=== PATIENT | female | born 1955 | race Caucasian/White ===

== ENCOUNTER 2016-05-21 08:45 | Outpatient (CLI) | END 2016-05-21 08:46 | disposition home or self-care (01) ==

== ENCOUNTER 2016-07-09 14:29 | Outpatient (CLI) | payer MEDICAID | END 2016-07-09 14:30 | disposition home or self-care (01) | DX: Z11.59 Encounter for screening for other viral diseases (principal) ==

== ENCOUNTER 2017-03-04 13:14 | Outpatient (CLI) | payer MEDICAID | END 2017-03-04 13:15 | disposition home or self-care (01) | LOC: LAB 13:14 | PROVIDERS: ATTEND Internal Medicine | DX: K21.0 Gastro-esophageal reflux disease with esophagitis (principal) | CPT/HCPCS: 36415; 83735 ==

== ENCOUNTER 2018-01-15 15:29 | Emergency (ER) | payer MEDICAID ==
[2018-01-15 15:36] VITALS: BP 167/81
--- NOTE | 2018-01-15 15:55 | ED Physician Documentation ---
History of Present Illness - Stated complaint Stated Complaint: NECK PX - Chief complaint Chief Complaint: General - History obtained from History obtained from: Patient - History of Present Illness Timing: Other (2 weeks ago she developed atraumatic neck pain on the left. It got better after a little bit, but worse again over the last few days and was "11 out of 10 earlier today. There was no specific factor that made it worse. She saw her chiropractor who did an x-ray and said she had arthritis. She did take a Vicodin today which helped a lot, but does not have anymore. There is no weakness, numbness, or tingling in the extremities or saddle area. No fevers.) Review of Systems Constitutional: denies: Fever, Chills GI: denies: Abdominal Pain, Nausea PD PAST MEDICAL HISTORY - Past Medical History Cardiovascular: Hypertension Respiratory: None Endocrine/Autoimmune: None GI: GERD : None Psych: None Musculoskeletal: None Derm: Rosacea - Past Surgical History General: Cholecystectomy, Colonoscopy /FINANCIAL REPORTING SPECIALIST: Hysterectomy HEENT: Tonsil/Adenoidectomy - Present Medications Home Medications: Ambulatory Orders Medication Instructions Recorded Confirmed Atenolol 50 mg PO DAILY 03/19/15 03/20/15 Diphenhydramine HCl [Benadryl] 25 mg PO QPM 03/19/15 03/20/15 Gabapentin 400 mg PO QPM 03/19/15 03/20/15 Melatonin 6 mg PO QPM 03/19/15 03/20/15 Pantoprazole [Protonix] 40 mg PO DAILY 03/19/15 03/20/15 HYDROcod/ACETAM 5/325 [[place] 5/325] 1 ea PO Q6H PRN #15 tablet 11/05/15 Ibuprofen [Motrin] 400 mg PO Q6H PRN #30 tablet 11/05/15 Hydrocodone/Acetaminophen 1 - 2 each PO Q6H PRN #14 tablet 01/15/18 [Hydrocodon-Acetaminophen 5-325] - Allergies Allergies/Adverse Reactions: Allergies Allergy/AdvReac Type Severity Reaction Status Date / Time erythromycin lactobionate * Allergy Rash Verified 11/05/15 13:27 [From Erythrocin] levofloxacin [From Levaquin] Allergy Rash Verified 11/05/15 13:27 nitrofurantoin Allergy Rash Verified 11/05/15 13:27 [From Macrobid] nitrofurantoin Allergy Rash Verified 11/05/15 13:27 macrocrystalline * [From Macrobid] doxycycline AdvReac the runs Verified 11/05/15 13:27 tetracycline AdvReac runs Verified 11/05/15 13:27 - Social History Does the pt smoke?: No Smoking Status: Never smoker Does the pt drink ETOH?: No Does the pt have substance abuse?: No - Immunizations Immunizations are current?: Yes PD ED PE NORMAL - Vitals Vital signs reviewed: Yes - General General: Alert and oriented X 3, No acute distress - HEENT HEENT: PERRL, EOMI - Neck Neck: No bony TTP, Other (Mild tenderness over the left sternocleidomastoid) - Extremities Extremities: Other (Equal bilateral senior sales operations manager strength, thumb extension, interosseous strength, flexion and extension at both wrists, upper extremity reflexes and sensation throughout the upper extremities.) - Neuro Neuro: Alert and oriented X 3, Normal speech Results - Vitals Vitals: Vital Signs - 24 hr 01/15/18 15:32 Temperature 36.6 C Heart Rate 64 Respiratory 16 Rate Blood Pressure 167/81 H O2 Saturation 99 Oxygen O2 Source Room air PD MEDICAL DECISION MAKING - Sepsis Event Vital Signs: Vital Signs - 24 hr 01/15/18 15:32 Temperature 36.6 C Heart Rate 64 Respiratory 16 Rate Blood Pressure 167/81 H O2 Saturation 99 Oxygen O2 Source Room air Departure - Departure Disposition: 01 Home, Self Care Clinical Impression: Neck pain Condition: Good Record reviewed to determine appropriate education?: Yes Instructions: ED Neck Pain No Trauma Prescriptions: Hydrocodone/Acetaminophen [Hydrocodon-Acetaminophen 5-325] 1 - 2 each PO Q6H PRN #14 tablet PRN Reason: pain Comments: Call your doctor to arrange a follow-up appointment, make the next available appointment. In the interim, return anytime if worse or if new symptoms develop. Your blood pressure was elevated today on check into the emergency department. This does not mean that you have hypertension, it is a common phenomenon to come to the emergency department and have elevated blood pressure. I recommend that you see your primary care physician within the week to have it rechecked when you are feeling better.
== END 2018-01-15 15:59 | disposition home or self-care (01) ==
LOC: ED 15:29
DX: M54.2 Cervicalgia (principal); I10 Essential (primary) hypertension
CPT/HCPCS: 99281; 99283

== ENCOUNTER 2018-08-24 08:19 | Outpatient (CLI) | payer MEDICAID ==
[2018-08-24 08:50] LABS: CHOL/HDL RATIO 3.4 (<4.4); CHOLESTEROL 155 mg/dL; HDL CHOLESTEROL 46 mg/dL; LDL CHOLESTEROL,CALCULATED 90 mg/dL; VLDL CHOLESTEROL 19 mg/dL
== END 2018-08-24 08:20 | disposition home or self-care (01) ==
LOC: LAB 08:19
PROVIDERS: ATTEND Internal Medicine
DX: E78.5 Hyperlipidemia, unspecified (principal)
CPT/HCPCS: 36415; 80061; 83721

== ENCOUNTER 2019-03-01 08:14 | Outpatient (CLI) | payer MEDICAID ==
[2019-03-01 09:02] LABS: ALBUMIN 4.4 g/dL (3.2-5.5); ALBUMIN/GLOBULIN RATIO 1.3 (1.0-2.2); ALKALINE PHOSPHATASE 70 IU/L (42-121); ALT ALANINE AMINOTRANSFERASE 43 IU/L (10-60); AST ASPARTATE AMINOTRANSFERASE 34 IU/L (10-42); BILIRUBIN,TOTAL 0.8 mg/dL (0.2-1.0); BUN - BLOOD UREA NITROGEN 24 mg/dL (6-20); CALCIUM 9.2 mg/dL (8.5-10.3); CARBON DIOXIDE - CO2 24 mmol/L (21-32); CHLORIDE 106 mmol/L (101-111); CHOL/HDL RATIO 3.2 (<4.4); CHOLESTEROL 144 mg/dL; CREATININE 0.9 mg/dL (0.4-1.0); GFR - MDRD 63 (>89); GLUCOSE 102 mg/dL (70-100); HDL CHOLESTEROL 45 mg/dL; LDL CHOLESTEROL,CALCULATED 79 mg/dL; LDL/HDL RATIO 1.8 (<4.4); SODIUM 139 mmol/L (135-145); TOTAL PROTEIN 7.8 g/dL (6.7-8.2); VLDL CHOLESTEROL 20 mg/dL
== END 2019-03-01 08:15 | disposition home or self-care (01) ==
LOC: LAB 08:14
PROVIDERS: ATTEND Internal Medicine
DX: E78.5 Hyperlipidemia, unspecified (principal)
CPT/HCPCS: 36415; 80053; 80061; 83721

== ENCOUNTER 2019-11-13 08:21 | Outpatient (CLI) | payer MEDICAID ==
[2019-11-13 09:13] LABS: ALBUMIN 4.4 g/dL (3.2-5.5); ALBUMIN/GLOBULIN RATIO 1.4 (1.0-2.2); BILIRUBIN,TOTAL 0.7 mg/dL (0.2-1.0); CALCIUM 9.1 mg/dL (8.5-10.3); CREATININE 0.9 mg/dL (0.4-1.0); TOTAL PROTEIN 7.5 g/dL (6.7-8.2)
== END 2019-11-13 08:22 | disposition home or self-care (01) ==
LOC: LAB 08:21
PROVIDERS: ATTEND Internal Medicine
DX: E78.5 Hyperlipidemia, unspecified (principal)
CPT/HCPCS: 36415; 80053

== ENCOUNTER 2020-05-13 08:45 | Outpatient (CLI) | payer MEDICAID ==
[2020-05-13 09:16] LABS: BASOPHILS % (AUTO) 0.4 %; EOSINOPHILS # (AUTO) 0.2 10^3/uL (0.0-0.7); EOSINOPHILS % (AUTO) 2.5 %; HGB - HEMOGLOBIN 14.3 g/dL (12.0-16.0); LYMPHOCYTES # (AUTO) 2.3 10^3/uL (1.5-3.5); MEAN CORPUSCULAR HEMOGLOBIN 30.1 pg (27.0-31.0); MEAN CORPUSCULAR HGB CONC 33.3 g/dL (32.0-36.0); MEAN CORPUSCULAR VOLUME 90.5 fL (81.0-99.0); MEAN PLATELET VOLUME 9.4 fL (7.9-10.8); MONOCYTES # (AUTO) 0.7 10^3/uL (0.0-1.0); MONOCYTES % (AUTO) 7.9 %; NEUTROPHILS % (AUTO) 63.8 %; PLT - PLATELET COUNT 219 10^3/uL (130-450); RED BLOOD COUNT 4.75 10^6/uL (4.20-5.40); RED CELL DISTRIBUTION WIDTH 13.4 % (12.0-15.0); WHITE BLOOD COUNT 9.4 x10^3/uL (4.8-10.8)
[2020-05-13 09:38] LABS: ALBUMIN 4.1 g/dL (3.2-5.5); ALBUMIN/GLOBULIN RATIO 1.3 (1.0-2.2); ALKALINE PHOSPHATASE 72 IU/L (42-121); ALT ALANINE AMINOTRANSFERASE 33 IU/L (10-60); AST ASPARTATE AMINOTRANSFERASE 28 IU/L (10-42); BILIRUBIN,TOTAL 0.5 mg/dL (0.2-1.0); BUN - BLOOD UREA NITROGEN 20 mg/dL (6-20); CALCIUM 9.3 mg/dL (8.5-10.3); CARBON DIOXIDE - CO2 23 mmol/L (21-32); CHLORIDE 103 mmol/L (101-111); CHOL/HDL RATIO 3.4 (<4.4); CHOLESTEROL 161 mg/dL; CREATININE 0.8 mg/dL (0.4-1.0); GLUCOSE 96 mg/dL (70-100); HDL CHOLESTEROL 47 mg/dL; LDL CHOLESTEROL,CALCULATED 94 mg/dL; SODIUM 138 mmol/L (135-145); TOTAL PROTEIN 7.3 g/dL (6.7-8.2); VLDL CHOLESTEROL 20 mg/dL
== END 2020-05-13 08:46 | disposition home or self-care (01) ==
LOC: LAB 08:45
PROVIDERS: ATTEND Internal Medicine
DX: E78.5 Hyperlipidemia, unspecified (principal); I10 Essential (primary) hypertension
CPT/HCPCS: 36415; 80053; 80061; 83721; 85025

== ENCOUNTER 2020-06-19 09:47 | Emergency (ER) | payer MEDICAID ==
--- NOTE | 2020-06-19 10:17 | ED Physician Documentation ---
PD HPI SKIN - Stated complaint Stated Complaint: BLISTER ON R ANKLE - Chief complaint Chief Complaint: Wound - History obtained from History obtained from: Patient - History of Present Illness Timing - onset: How many days ago (2-3) Timing - duration: Days (2-3) Timing - details: Gradual onset Location: RLE (anterior lower leg) Quality / character: Painful, Discolored (red), Vesicular (large blister about 1 1/2 cm developed and unroofed in area, with other small ones developing nearby. Has some weeping, but not purulent per se.) Review of Systems Constitutional: denies: Fever, Chills Nose: denies: Rhinorrhea / runny nose, Congestion Throat: denies: Sore throat Respiratory: denies: Cough Skin: reports: Lesions (just right anterior lower leg) PD PAST MEDICAL HISTORY - Past Medical History Past Medical History: Yes Cardiovascular: Hypertension Respiratory: None Neuro: None Endocrine/Autoimmune: None GI: GERD ACADEMIC RECORDS SPECIALIST: None : None HEENT: None Psych: None Musculoskeletal: None Derm: Rosacea Other Past Medical History: IBS - Past Surgical History Past Surgical History: Yes General: Cholecystectomy, Colonoscopy /ACADEMIC RECORDS SPECIALIST: Hysterectomy HEENT: Tonsil/Adenoidectomy - Present Medications Home Medications: Ambulatory Orders Medication Instructions Recorded Confirmed Atenolol 50 mg PO DAILY 03/19/15 06/19/20 Gabapentin 400 mg PO QPM 03/19/15 06/19/20 Melatonin 6 mg PO QPM 03/19/15 06/19/20 Pantoprazole [Protonix] 40 mg PO DAILY 03/19/15 06/19/20 diphenhydrAMINE HCl [Benadryl] 25 mg PO QPM 03/19/15 06/19/20 HYDROcod/ACETAM 5/325 [[place] 5/325] 1 ea PO Q6H PRN #15 tablet 11/05/15 06/19/20 Ibuprofen [Motrin] 400 mg PO Q6H PRN #30 tablet 11/05/15 06/19/20 Mupirocin Calcium [Mupirocin] 1 applic TP TID #15 cream..g. 06/19/20 Sulfamethox/Trimeth 800/160 1 each PO BID #14 tablet 06/19/20 [Bactrim Ds 800/160] - Allergies Allergies/Adverse Reactions: Allergies Allergy/AdvReac Type Severity Reaction Status Date / Time erythromycin lactobionate * Allergy Rash Verified 06/19/20 10:00 [From Erythrocin] levofloxacin [From Levaquin] Allergy Rash Verified 06/19/20 10:00 nitrofurantoin Allergy Rash Verified 06/19/20 10:00 [From Macrobid] nitrofurantoin Allergy Rash Verified 06/19/20 10:00 macrocrystalline * [From Macrobid] doxycycline AdvReac the runs Verified 06/19/20 10:00 tetracycline AdvReac runs Verified 06/19/20 10:00 - Social History Does the pt smoke?: No Smoking Status: Never smoker Does the pt drink ETOH?: No Does the pt have substance abuse?: No - Immunizations Immunizations are current?: Yes PD ED PE NORMAL - Vitals Vital signs reviewed: Yes - General General: Alert and oriented X 3, No acute distress, Well developed/nourished - Derm Derm: Warm and dry, Other (right anterior lower leg with superficial ulceration of skin, with apparent unroofed circular blister area. 2-3 mm smaller developing blisters developing around it. No purulence per se. ) - Neuro Neuro: No motor deficit, No sensory deficit Results - Vitals Vitals: Vital Signs - 24 hr 06/19/20 06/19/20 09:56 11:13 Temperature 36.1 C L 36.7 C Heart Rate 61 63 Respiratory 16 16 Rate Blood Pressure 162/71 H 154/75 H O2 Saturation 99 96 Oxygen O2 Source Room air - Labs Labs: Microbiology 06/19/20 10:36 Wound Culture - Preliminary Leg - Right PD MEDICAL DECISION MAKING - ED course Complexity details: considered differential (looks likely bullous staph with some red cellulitic appearance around.), d/w patient Departure - Departure Disposition: 01 Home, Self Care Clinical Impression: Bullous staphylococcal impetigo Condition: Stable Record reviewed to determine appropriate education?: Yes Instructions: ED Staph Infec Abx Tx Only Follow-Up: ALLA SHAHID SI [Primary Care Provider] - Prescriptions: Sulfamethox/Trimeth 800/160 [Bactrim Ds 800/160] 1 each PO BID #14 tablet Mupirocin Calcium [Mupirocin] 1 applic TP TID #15 cream..g. Comments: This looks likely to be a superficial skin infection and most likely staph aureus. Use some warm moist towels to the area to get good blood flow. Use mupirocin topical antibiotic 2-3 times a day lightly to the area. Bactrim oral antibiotic twice daily for the next 5 to 7 days till it seems fully healed. The culture will result in a couple of days and will call if we need to change antibiotic choice. Follow-up if not improved well over the next couple of days and resolved by 3 to 5 days. Discharge Date/Time: 06/19/20 11:14
[2020-06-19] MEDS ORDERED: MUPIROCIN 2% OINT 1 GM TOP STA (10:30)
[2020-06-19] MEDS ORDERED: SULFAMETH/TRIMETH DS 800/160 MG TABLET PO STA (10:31)
[2020-06-19 11:14] VITALS: BP 154/75
== END 2020-06-19 11:14 | disposition home or self-care (01) ==
LOC: ED 09:47
DX: L01.03 Bullous impetigo (principal); B95.61 Methicillin susceptible Staphylococcus aureus infection as the cause of diseases classified elsewhere; I10 Essential (primary) hypertension
CPT/HCPCS: 87070; 87181; 87205; 99283; A9270

== ENCOUNTER 2020-10-07 08:24 | Outpatient (CLI) | payer MEDICAID ==
[2020-10-07 09:00] LABS: ALBUMIN 4.2 g/dL (3.2-5.5); ALBUMIN/GLOBULIN RATIO 1.2 (1.0-2.2); BILIRUBIN,TOTAL 0.5 mg/dL (0.2-1.0); CALCIUM 8.9 mg/dL (8.5-10.3); CREATININE 0.8 mg/dL (0.4-1.0); TOTAL PROTEIN 7.7 g/dL (6.7-8.2)
== END 2020-10-07 08:25 | disposition home or self-care (01) ==
LOC: LAB 08:24
PROVIDERS: ATTEND Internal Medicine
DX: E78.5 Hyperlipidemia, unspecified (principal)
CPT/HCPCS: 36415; 80053

== ENCOUNTER 2020-11-19 14:05 | Outpatient (CLI) | payer MEDICAID ==
--- NOTE | 2020-11-19 18:06 | XRAY Report ---
PROCEDURE: Knee 3 View RT INDICATIONS: R KNEE PX TECHNIQUE: 3 views of the right knee(s) were acquired. COMPARISON: 05/31/2017 FINDINGS: Bones: No fractures or dislocations. Severe lateral compartment joint space loss. Slight lateral tib iofemoral subluxation. Prominent patellofemoral compartment osteophytes. Prominent fabella with osteo phytosis. No suspicious bony lesions. Soft tissues: No joint effusion. No suspicious soft tissue calcifications. IMPRESSION: Severe lateral compartment joint space loss and prominent patellofemoral compartment ost eophytosis. No significant progression since the prior study. Reviewed by: Shaye Valiente MD on 11/19/2020 6:04 PM PDT Approved by: Shaye Valiente MD on 11/19/2020 6:04 PM PDT Station ID: [id number]
== END 2020-11-19 23:59 | disposition home or self-care (01) ==
LOC: DI.N 14:05
PROVIDERS: ATTEND Family Medicine
DX: M17.11 Unilateral primary osteoarthritis, right knee (principal)

== ENCOUNTER 2021-07-30 08:00 | Outpatient (CLI) | payer MEDICAID, MEDICARE | END 2021-07-30 23:59 | LOC: LAB.N 08:00 | PROVIDERS: ATTEND Family Medicine | DX: L03.115 Cellulitis of right lower limb (principal) | CPT/HCPCS: 87070; 87181; 87205 ==

== ENCOUNTER 2021-10-10 08:27 | Outpatient (CLI) | payer MEDICARE ==
[2021-10-10 08:52] LABS: BASOPHILS % (AUTO) 0.3 %; EOSINOPHILS # (AUTO) 0.2 10^3/uL (0.0-0.7); EOSINOPHILS % (AUTO) 1.7 %; HGB - HEMOGLOBIN 14.4 g/dL (12.0-16.0); LYMPHOCYTES # (AUTO) 2.1 10^3/uL (1.5-3.5); LYMPHOCYTES % (AUTO) 22.6 %; MEAN CORPUSCULAR HEMOGLOBIN 29.6 pg (27.0-31.0); MEAN CORPUSCULAR HGB CONC 32.7 g/dL (32.0-36.0); MEAN CORPUSCULAR VOLUME 90.3 fL (81.0-99.0); MEAN PLATELET VOLUME 9.2 fL (7.9-10.8); MONOCYTES # (AUTO) 0.7 10^3/uL (0.0-1.0); MONOCYTES % (AUTO) 7.8 %; NEUTROPHILS # (AUTO) 6.3 10^3/uL (1.5-6.6); NEUTROPHILS % (AUTO) 67.1 %; PLT - PLATELET COUNT 223 10^3/uL (130-450); RED BLOOD COUNT 4.87 10^6/uL (4.20-5.40); RED CELL DISTRIBUTION WIDTH 13.8 % (12.0-15.0); WHITE BLOOD COUNT 9.4 x10^3/uL (4.8-10.8)
[2021-10-10 09:19] LABS: ALBUMIN/GLOBULIN RATIO 1.1 (1.0-2.2); ALKALINE PHOSPHATASE 65 IU/L (42-121); ALT ALANINE AMINOTRANSFERASE 36 IU/L (10-60); AST ASPARTATE AMINOTRANSFERASE 27 IU/L (10-42); BILIRUBIN,TOTAL 0.7 mg/dL (0.2-1.0); BUN - BLOOD UREA NITROGEN 20 mg/dL (6-20); CALCIUM 9.3 mg/dL (8.5-10.3); CARBON DIOXIDE - CO2 25 mmol/L (21-32); CHLORIDE 103 mmol/L (101-111); CHOLESTEROL 158 mg/dL; CREATININE 0.9 mg/dL (0.4-1.0); GFR - MDRD 63 (>89); GLUCOSE 101 mg/dL (70-100); HDL CHOLESTEROL 52 mg/dL; LDL CHOLESTEROL,CALCULATED 88 mg/dL; LDL/HDL RATIO 1.7 (<4.4); POTASSIUM 4.2 mmol/L (3.5-5.0); SODIUM 140 mmol/L (135-145); TOTAL PROTEIN 7.5 g/dL (6.7-8.2); TRIGLYCERIDES 92 mg/dL; VLDL CHOLESTEROL 18 mg/dL
== END 2021-10-10 08:28 | disposition home or self-care (01) ==
LOC: LAB 08:27
PROVIDERS: ATTEND Nurse Practitioner
DX: I10 Essential (primary) hypertension (principal); Z13.220 Encounter for screening for lipoid disorders
CPT/HCPCS: 36415; 80053; 80061; 83721; 85025

== ENCOUNTER 2022-08-17 08:00 | Outpatient (CLI) | payer MEDICARE, MEDICAID ==
--- NOTE | 2022-08-17 17:05 | XRAY Report ---
PROCEDURE: Knee 4 View RT INDICATIONS: RIGHT KNEE PAIN TECHNIQUE: 4 views of the right knee(s) were acquired. COMPARISON: None. FINDINGS: Bones: Tricompartmental joint space and associated osteophytosis. Subchondral sclerosis of the media l tibial plateau, with complete loss at this site. Soft tissues: Mild effusion. No suspicious soft tissue calcifications or masses. IMPRESSION: Moderate tricompartmental osteoarthritis. Reviewed by: Vaibhav Fang on 08/17/2022 5:03 PM PDT Approved by: Vaibhav Fang on 08/17/2022 5:03 PM PDT Station ID: [id number]
== END 2022-08-17 23:59 | disposition home or self-care (01) ==
LOC: DI.WOS 08:00
PROVIDERS: ATTEND Orthopaedic Surgery
DX: M17.11 Unilateral primary osteoarthritis, right knee (principal)

== ENCOUNTER 2023-08-11 09:22 | Outpatient (CLI) | payer MEDICARE, MEDICAID ==
[2023-08-11 09:40] LABS: BASOPHILS % (AUTO) 0.4 %; EOSINOPHILS # (AUTO) 0.2 10^3/uL (0.0-0.7); EOSINOPHILS % (AUTO) 1.5 %; HCT - HEMATOCRIT 45.3 % (37.0-47.0); HGB - HEMOGLOBIN 14.4 g/dL (12.0-16.0); LYMPHOCYTES # (AUTO) 2.3 10^3/uL (1.5-3.5); LYMPHOCYTES % (AUTO) 22.4 %; MEAN CORPUSCULAR HEMOGLOBIN 29.2 pg (27.0-31.0); MEAN CORPUSCULAR HGB CONC 31.8 g/dL (32.0-36.0); MEAN CORPUSCULAR VOLUME 91.9 fL (81.0-99.0); MEAN PLATELET VOLUME 9.7 fL (7.9-10.8); MONOCYTES # (AUTO) 0.8 10^3/uL (0.0-1.0); MONOCYTES % (AUTO) 7.7 %; NEUTROPHILS % (AUTO) 67.5 %; PLT - PLATELET COUNT 244 10^3/uL (130-450); RED BLOOD COUNT 4.93 10^6/uL (4.20-5.40); RED CELL DISTRIBUTION WIDTH 13.9 % (12.0-15.0); WHITE BLOOD COUNT 10.4 x10^3/uL (4.8-10.8)
[2023-08-11 09:52] LABS: ALBUMIN 4.1 g/dL (3.2-5.5); ALBUMIN/GLOBULIN RATIO 1.3 (1.0-2.2); ALKALINE PHOSPHATASE 75 IU/L (42-121); ALT ALANINE AMINOTRANSFERASE 35 IU/L (10-60); AST ASPARTATE AMINOTRANSFERASE 26 IU/L (10-42); BILIRUBIN,TOTAL 0.5 mg/dL (0.2-1.0); BUN - BLOOD UREA NITROGEN 20 mg/dL (6-20); CALCIUM 9.7 mg/dL (8.5-10.3); CARBON DIOXIDE - CO2 28 mmol/L (21-32); CHLORIDE 106 mmol/L (101-111); CHOLESTEROL 142 mg/dL; CREATININE 0.8 mg/dL (0.6-1.3); GFR - MDRD 72 (>89); GLUCOSE 95 mg/dL (74-104); HDL CHOLESTEROL 47 mg/dL; LDL CHOLESTEROL,CALCULATED 71 mg/dL; LDL/HDL RATIO 1.5 (<4.4); POTASSIUM 4.1 mmol/L (3.5-4.5); SODIUM 140 mmol/L (135-145); TOTAL PROTEIN 7.3 g/dL (6.4-8.9); TRIGLYCERIDES 118 mg/dL (48-352); VLDL CHOLESTEROL 24 mg/dL
[2023-08-11 10:07] LABS: THYROID STIMULATING HORMONE 6.17 uIU/mL (0.34-5.60)
[2023-08-11 10:35] LABS: ESTIMATED AVERAGE GLUCOSE 117 mg/dL (70-100); HEMOGLOBIN A1c% 5.7 % (4.27-6.07)
== END 2023-08-11 09:23 | disposition home or self-care (01) ==
LOC: LAB 09:22
PROVIDERS: ATTEND Nurse Practitioner
DX: R53.83 Other fatigue (principal); Z13.220 Encounter for screening for lipoid disorders; E66.01 Morbid (severe) obesity due to excess calories
CPT/HCPCS: 36415; 80053; 80061; 83036; 83721; 84439; 84443; 85025

== ENCOUNTER 2023-10-14 12:30 | Outpatient (CLI) | payer MEDICARE, MEDICAID ==
--- NOTE | 2023-10-14 14:33 | XRAY Report ---
PROCEDURE: Knee 4+V RT INDICATIONS: R KNEE OSTEOARTHRITIS TECHNIQUE: 4 views of the knee(s) were acquired. COMPARISON: X-ray knee 08/17/2022 FINDINGS: Bones: No fractures or dislocations. No suspicious bony lesions. There is severe right lateral co mpartment narrowing with periarticular osteophytes. Minimal interval progression is present. Moderate to severe medial patellofemoral compartment narrowing is also present, minimally progressive. No ero sions. Moderate to severe bicompartmental left arthritic changes are present most severe medially. Soft tissues: Moderate right knee joint effusion. No suspicious soft tissue calcifications or masses . IMPRESSION: Moderate to severe tricompartmental arthritic changes on the right most severe laterally and progress varsha compared to prior exam. Reviewed by: Nu Holguin MD on 10/14/2023 2:32 PM PDT Approved by: Nu Holguin MD on 10/14/2023 2:32 PM PDT Station ID: [id number]
== END 2023-10-14 12:31 | disposition home or self-care (01) ==
LOC: DI 12:30
PROVIDERS: ATTEND Physician Assistant Surgical
DX: M17.11 Unilateral primary osteoarthritis, right knee (principal)

== ENCOUNTER 2024-01-04 08:00 | Outpatient (CLI) | payer MEDICARE, MEDICAID | END 2024-01-04 08:01 | disposition home or self-care (01) | LOC: LAB.R 08:00 | PROVIDERS: ATTEND Nurse Practitioner | DX: I87.2 Venous insufficiency (chronic) (peripheral) (principal); L97.922 Non-pressure chronic ulcer of unspecified part of left lower leg with fat layer exposed | CPT/HCPCS: 87070; 87181; 87205 ==